=== PATIENT | male | born 1975 | race Caucasian/White ===

== ENCOUNTER 2017-09-22 10:04 | Emergency (ER) | payer BC ==
[2017-09-22 11:16] LABS: ABS Basophils 0 10^3/ul (0-0.2); ABS Eosinophils 0.1 10^3/ul (0-0.6); ABS Lymphocytes 2.1 10^3/ul (1.0-4.8); ABS Monocytes 0.4 10^3/ul (0-0.8); ABS Neutrophils 2.1 10^3/ul (1.5-7.7); ABS Nucleated RBC 0 10^3/ul; Eosinophil % 2.7 % (0-6); Hematocrit 46 % (42-52); Lymphocyte % 44.2 % (25-47); Mean Corpuscular HGB Conc 35 g/dl (31-36); Mean Corpuscular Hemoglobin 31 pg (27-31); Mean Corpuscular Volume 89 fL (80-94); Mean Platelet Volume 8 um3 (7.4-10.4); Nucleated Red Blood Cells % 0.1; Platelet Count 197 10^3/ul (150-450); Red Blood Count 5.22 10^6/ul (4.0-5.4); Red Cell Distribution Width 13 % (10.5-15); White Blood Count 4.7 10^3/ul (3.5-10.8)
[2017-09-22 11:31] LABS: EGFR Non-African American 85.1 (>60)
--- NOTE | 2017-09-22 11:37 | RAD ---
INDICATION: 1 week mid chest pain. LEFT hand numbness. COMPARISON: January 20, 2000 and TECHNIQUE: Dual energy PA and routine lateral views of the chest were obtained. REPORT: Clear lungs and pleural spaces. Negative for pneumothorax. The heart, pulmonary vasculature, and mediastinal contours are unremarkable. Unremarkable osseous structures and soft tissue contours. IMPRESSION: No evidence for acute intrathoracic disease.
[2017-09-22 14:09] VITALS: BP 153/78
--- NOTE | 2017-09-27 13:49 | ED ---
Francine Mckoy Edward, scribed for Edouard Bynum MD on 09/22/17 at 1020 . HPI Chest Pain - HPI Summary HPI Summary: 41 y/o male presents to the ED c/o intermittent L upper chest chest tightness starting 1 week ago. The next night the pt c/o L hand tingling while at rest. Pain aggravated with movement. Pt does not c/o tightness now. Three nights ago pt had an episode of cold sweats. Associated sx: mild SOB at on exertion two days ago. Pt states he performed heavy exercise several days before the tightness started. PMHx 1 year ago, the pt had an episode of "butterflies in his chest" - palpitations followed by an episode of chest tightness. Pt had a stress test done with Dr. Laureano. - History of Current Complaint Chief Complaint: EDChestPainROMI Hx Obtained From: Patient Onset/Duration: Started Days Ago Timing: Intermittent Pain Intensity: 0 Chest Pain Location: Left Lateral - L upper chest Character: Tightness Aggravating Factor(s): Movement Alleviating Factor(s): Nothing Associated Signs and Symptoms: Positive: Tingling, Shortness of Breath, Diaphoresis - Allergy/Home Medications Allergies/Adverse Reactions: Allergies Allergy/AdvReac Type Severity Reaction Status Date / Time Penicillins Allergy Hives Verified 09/22/17 10:17 Home Medications: Home Medications Multivitamins/Minerals TAB* [Theragran/minerals TAB*] 1 tab PO DAILY 09/22/17 [ History Confirmed 09/22/17] [place]lysses-3 Fatty Acids (Nf) [Fish Oil (NF)] 1,000 - 2,000 mg PO DAILY 09/22/17 [ History Confirmed 09/22/17] PMH/Surg Hx/FS Hx/Imm Hx Previously Healthy: No Endocrine/Hematology History: Denies: Hx Diabetes Cardiovascular History: Denies: Hx Congestive Heart Failure, Other Cardiovascular Problems/Disorders - No history of blood clots Respiratory History: Denies: Hx Asthma, Hx Chronic Obstructive Pulmonary Disease (COPD) Infectious Disease History: No Infectious Disease History: Denies: Traveled Outside the [place] in Last 30 Days - Family History Known Family History: Positive: None - Social History Occupation: Employed Full-time Lives: With Family Hx Tobacco Use: No Smoking Status (MU): Never Smoked Tobacco Review of Systems Positive: Skin Diaphoresis. Negative: Fever, Chills Negative: Erythema Negative: Sore Throat Positive: Chest Pain Positive: Shortness Of Breath. Negative: Cough Negative: Abdominal Pain, Vomiting, Nausea Negative: dysuria, hematuria Negative: Myalgia, Edema Negative: Rash Neurological: Other - no dizziness. Positive tingling in L hand All Other Systems Reviewed And Are Negative: Yes Physical Exam - Summary Physical Exam Summary: Constitutional: Well-developed, Well-nourished, Alert. (-) Distressed Skin: Warm, Dry HENT: Normocephalic; Atraumatic Eyes: Conjunctiva normal Neck: Musculoskeletal ROM normal neck. (-) JVD, (-) Stridor, (-) Tracheal deviation Cardio: Rhythm regular, rate normal, Heart sounds normal; Intact distal pulses; The pedal pulses are 2+ and symmetric. Radial pulses are 2+ and symmetric. (-) Murmur Pulmonary/Chest wall: Effort normal. (-) Respiratory distress, (-) Wheezes, (-) Rales. Unable to reproduce pain. Abd: Soft, (-) Tenderness, (-) Distension, (-) Guarding, (-) Rebound Musculoskeletal: (-) Edema Lymph: (-) Cervical adenopathy Neuro: Alert, Oriented x3 Psych: Mood and affect Normal Triage Information Reviewed: Yes Vital Signs On Initial Exam: Initial Vitals Temp Pulse Resp BP Pulse Ox 97.8 F 84 17 167/97 99 09/22/17 10:13 09/22/17 10:13 09/22/17 10:13 09/22/17 10:13 09/22/17 10:13 Vital Signs Reviewed: Yes Diagnostics - Vital Signs Vital Signs Temp Pulse Resp BP Pulse Ox 09/22/17 10:13 97.8 F 84 17 167/97 99 - Laboratory Lab Results: Lab Results 09/22/17 09/22/17 09/22/17 Range/Units 11:05 11:05 11:05 WBC 4.7 (3.5-10.8) 10^3/ul RBC 5.22 (4.0-5.4) 10^6/ul Hgb 16.0 (14.0-18.0) g/dl Hct 46 (42-52) % MCV 89 (80-94) fL MCH 31 (27-31) pg MCHC 35 (31-36) g/dl RDW 13 (10.5-15) % Plt Count 197 (150-450) 10^3/ul MPV 8 (7.4-10.4) um3 Neut % (Auto) 44.1 (38-83) % Lymph % (Auto) 44.2 (25-47) % [place] % (Auto) 8.0 H (0-7) % Eos % (Auto) 2.7 (0-6) % Baso % (Auto) 1.0 (0-2) % Absolute Neuts (auto) 2.1 (1.5-7.7) 10^3/ul Absolute Lymphs (auto) 2.1 (1.0-4.8) 10^3/ul Absolute Monos (auto) 0.4 (0-0.8) 10^3/ul Absolute Eos (auto) 0.1 (0-0.6) 10^3/ul Absolute Basos (auto) 0 (0-0.2) 10^3/ul Absolute Nucleated RBC 0 10^3/ul Nucleated RBC % 0.1 D-Dimer, Quantitative < 200 (Less Than 230) ng/mL Sodium 136 (133-145) mmol/L Potassium 4.2 (3.5-5.0) mmol/L Chloride 102 (101-111) mmol/L Carbon Dioxide 28 (22-32) mmol/L Anion Gap 6 (2-11) mmol/L BUN 15 (6-24) mg/dL Creatinine 0.98 (0.67-1.17) mg/dL Est GFR ( Amer) 109.5 (>60) Est GFR (Non-Af Amer) 85.1 (>60) BUN/Creatinine Ratio 15.3 (8-20) Glucose 104 H (70-100) mg/dL Lactic Acid (0.5-2.0) mmol/L Calcium 9.6 (8.6-10.3) mg/dL Total Bilirubin 0.60 (0.2-1.0) mg/dL AST 18 (13-39) U/L ALT 21 (7-52) U/L Alkaline Phosphatase 59 (34-104) U/L Troponin I 0.00 (<0.04) ng/mL Total Protein 6.9 (6.4-8.9) g/dL Albumin 4.5 (3.2-5.2) g/dL Globulin 2.4 (2-4) g/dL Albumin/Globulin Ratio 1.9 (1-3) 09/22/17 09/22/17 Range/Units 11:05 12:57 WBC (3.5-10.8) 10^3/ul RBC (4.0-5.4) 10^6/ul Hgb (14.0-18.0) g/dl Hct (42-52) % MCV (80-94) fL MCH (27-31) pg MCHC (31-36) g/dl RDW (10.5-15) % Plt Count (150-450) 10^3/ul MPV (7.4-10.4) um3 Neut % (Auto) (38-83) % Lymph % (Auto) (25-47) % [place] % (Auto) (0-7) % Eos % (Auto) (0-6) % Baso % (Auto) (0-2) % Absolute Neuts (auto) (1.5-7.7) 10^3/ul Absolute Lymphs (auto) (1.0-4.8) 10^3/ul Absolute Monos (auto) (0-0.8) 10^3/ul Absolute Eos (auto) (0-0.6) 10^3/ul Absolute Basos (auto) (0-0.2) 10^3/ul Absolute Nucleated RBC 10^3/ul Nucleated RBC % D-Dimer, Quantitative (Less Than 230) ng/mL Sodium (133-145) mmol/L Potassium (3.5-5.0) mmol/L Chloride (101-111) mmol/L Carbon Dioxide (22-32) mmol/L Anion Gap (2-11) mmol/L BUN (6-24) mg/dL Creatinine (0.67-1.17) mg/dL Est GFR ( Amer) (>60) Est GFR (Non-Af Amer) (>60) BUN/Creatinine Ratio (8-20) Glucose (70-100) mg/dL Lactic Acid 1.4 (0.5-2.0) mmol/L Calcium (8.6-10.3) mg/dL Total Bilirubin (0.2-1.0) mg/dL AST (13-39) U/L ALT (7-52) U/L Alkaline Phosphatase (34-104) U/L Troponin I 0.00 (<0.04) ng/mL Total Protein (6.4-8.9) g/dL Albumin (3.2-5.2) g/dL Globulin (2-4) g/dL Albumin/Globulin Ratio (1-3) Result Diagrams: 09/22/17 11:05 09/22/17 11:05 Lab Statement: Any lab studies that have been ordered have been reviewed, and results considered in the medical decision making process. - Radiology CXR Xray Interpretation: No Acute Changes - NO EVIDENCE FOR ACUTE INTRATHORACIC DISEASE Radiology Interpretation Completed By: Radiologist - ED PHYSICIAN REVIEWS AND AGREES - EKG 1 EKG Interpretation: 10:25 - Sinus rhythm @ 71 BPM. Re-Evaluation - Re-Evaluation 1 Re-Evaluation Time: 13:18 Comment: reports chest discomfort when he sneezes and when he tenses up his chest. Chest Pain Course/Dx - Course Assessment/Plan: 41 y/o male presents to the ED c/o intermittent L upper chest chest tightness starting 1 week ago. The next night the pt c/o L hand tingling while at rest. Pain aggravated with movement. Pt does not c/o tightness now. Three nights ago pt had an episode of cold sweats. Associated sx: mild SOB at on exertion two days ago. Pt states he performed heavy exercise several days before the tightness started. PMHx 1 year ago, the pt had an episode of "butterflies in his chest" - palpitations followed by an episode of chest tightness. Pt had a stress test done with Dr. Laureano. EKG - 10:25 - Sinus rhythm @ 71 BPM. CXR shows no evidence for acute intrathoracic disease. Test results without significant abnormalities. Pt will be d/c home with f/u with PCP. Hypertension will be monitored by primary. Try dietary modifications. Pt appeared to be anxious in the ED. No indication for medication changes. - Diagnoses Provider Diagnoses: Reproducible chest pain, Hypertension Discharge - Sign-Out/Discharge Documenting (check all that apply): Discharge - dc - Discharge Plan Condition: Stable Disposition: HOME Patient Education Materials: Chest Pain (ED), Hypertension (ED) Referrals: Jayson Laureano MD [Primary Care Provider] - 4 Days (PLEASE F/U IN 3-5 DAYS) Additional Instructions: Heart attack ruled out today. Your symptoms, which are reproduced with movement , seem to be related to pulled muscle related to heavy lifting. I advise you to lose weight, cut out salt, purchase a Blood Pressure cuff at your local pharmacy and keep a BP log so that you can report to your doctor. Return to ED for changing or worsening symptoms. - Billing Disposition and Condition Condition: STABLE Disposition: HOME The documentation as recorded by the Francine herring Edward accurately reflects the service I personally performed and the decisions made by me, Edouard Bynum MD.
== END 2017-09-22 14:09 | disposition home or self-care (01) ==
LOC: ED 10:04
DX: I10 Essential (primary) hypertension (principal); R07.9 Chest pain, unspecified
CPT/HCPCS: 36415; 71046; 80053; 83605; 84484; 85025; 85379; 93005; 99282

== ENCOUNTER 2018-12-22 20:16 | Emergency (ER) | payer BC ==
[2018-12-22 20:47] VITALS: BP 152/92
--- NOTE | 2018-12-22 20:52 | UC ---
Hypertension HPI - HPI Summary HPI Summary: 43 y/o male presents to the urgent care c/o Pt was feeling a little lightheaded after a nap and took his BP and it was 177/ 83. - History of Current Complaint Chief Complaint: UCGeneralIllness Stated Complaint: HBP LIGHTHEADED Time Seen by Provider: 12/22/18 20:51 Hx Obtained From: Patient - Allergies/Home Medications Allergies/Adverse Reactions: Allergies Allergy/AdvReac Type Severity Reaction Status Date / Time Penicillins Allergy Hives Verified 12/22/18 20:47 Home Medications: Home Medications Magnesium Oxide [Magnesium] 250 mg PO DAILY 12/22/18 [History Confirmed 12/22/18 ] PMH/Surg Hx/FS Hx/Imm Hx - Surgical History Surgical History: Yes Surgery Procedure, Year, and Place: ORTHOSCOPIC RIGHT KNEE. TONSILS. WISDOM TEETH. BASAL CELL REMOVED FROM NOSE - Family History Known Family History: Positive: None - Social History Alcohol Use: Rare Substance Use Type: None Smoking Status (MU): Never Smoked Tobacco Physical Exam Vital Signs: Initial Vital Signs Temp 98.0 F 12/22/18 20:42 Pulse 93 12/22/18 20:42 Resp 16 12/22/18 20:42 BP 152/92 12/22/18 20:42 Pulse Ox 99 12/22/18 20:42 Hypertension Course/Dx - Differential Dx/Diagnosis Differential Diagnosis/HQI PQRI: Other - HTN Provider Diagnosis: Elevated BP without diagnosis of hypertension, Lightheadedness Discharge - Sign-Out/Discharge Documenting (check all that apply): Patient Departure - d/C home All imaging exams completed and their final reports reviewed: No Studies - Discharge Plan Condition: Stable Disposition: HOME Patient Education Materials: Hypertension (ED), Low-Sodium Diet (ED) Referrals: Caro Doss PA [Primary Care Provider] - 3 Days Additional Instructions: 1-Your BP is elevated today. Please take your BP medications and decrease salt in your diet, monitor BP and if it continues to be elevated please f/u with your PCP for further management. If you develop chest pain, dizziness, visual disturbances, SOB, or severe JIMENES please go immediately to the ER for further management - Billing Disposition and Condition Condition: STABLE Disposition: Home
== END 2018-12-22 21:53 | disposition home or self-care (01) ==
LOC: UCEAST 20:16
DX: R03.0 Elevated blood-pressure reading, without diagnosis of hypertension (principal); R42 Dizziness and giddiness; Z88.0 Allergy status to penicillin
CPT/HCPCS: 93005; 99211; G0463